=== PATIENT | male | born 1970 | race Caucasian/White ===

== ENCOUNTER → 2016-06-16 | Outpatient (CLI) | payer BC ==
[~2016-06-16] MED LIST: ASA325 MG PO; FLEXERIL DPS5 MG PO; GLUCOSAMINE/CHO1 TAB PO; MIRALAX PACKET17 GM PO; OXY IR DPS5 MG PO; SENOKOT S1 TAB PO; TYLENOL DPS325 MG PO; ULTRAM DPS50 MG PO; XARELTO10 MG PO
== END | disposition home or self-care (01) ==
LOC: PTH.S 10:43
DX: Z01.812 Encounter for preprocedural laboratory examination (principal)

== ENCOUNTER 2016-07-01 09:26 | Inpatient (IN) | payer BC ==
[~2016-07-01] VITALS: Ht 185.4 cm; Wt 103.0 kg
--- NOTE | 2016-07-01 15:27 | HP ---
ADMIT: 07/01/2016 RM/LOC: W.04 [facility] MR#: [id number] [address] [address] DARI YIP [address] [place] [address] Pre-OP History and Physical SEX: M AGE: 46 : 1970 Corrected: 07/01/2016 1146 djs DATE OF SERVICE: CHIEF COMPLAINT: Bilateral knee pain. HISTORY OF PRESENT ILLNESS: The patient is a 46-year-old white male, who has had bilateral knee severe DJD for several years. He has failed nonoperative treatment with medications, therapy, injections. He says he feels like he is ready for total knee arthroplasty. PAST MEDICAL HISTORY: Significant for history of back problems, knee arthroscopy in the past, and hernia repair. MEDICATIONS: 1. Aleve. 2. Glucosamine. ALLERGIES: NO KNOWN ALLERGIES. SOCIAL HISTORY: The patient does have a history of a chewing tobacco. Does not regularly drink alcohol. PHYSICAL EXAMINATION: HEENT: Normocephalic and atraumatic. CV: Regular rate and rhythm. LUNGS: Benign. ABDOMEN: Benign. NEUROLOGIC: Awake, alert, and oriented x3. MUSCULOSKELETAL: Shows significant varus orientation of the knee. Short a couple degrees of full extension, flexes 125 degrees. Tender over the medial joint line. There is patellofemoral crepitus. IMAGING DATA: X-rays show bilateral knee DJD, bone on bone medially and patellofemoral arthrosis. ADMIT: 07/01/2016 RM/LOC: W.04 [facility] MR#: [id number] [address] [address] DARI YIP [address] [place] [address] Pre-OP History and Physical SEX: M AGE: 46 : 1970 ASSESSMENT AND PLAN: Bilateral knee degenerative joint disease. At this point in time, we will plan bilateral total knee arthroplasties. The patient understands the risks and benefits of the surgical intervention, which include, but not limited to infection, DVT, arthrofibrosis, neurovascular injury, loosening, , etc., and desires to proceed. He will see his medical doctor, Dr. Rush, for preoperative medical clearance who will follow him postoperatively in the hospital for anticoagulation and any medical issues that may arise. Please refer to that H and P for any in-depth medical issues or medication changes. Aron Deleon MD/ nick JOB #: [id number] CC: Aron Deleon, Attending Physician Jeromy Álvarez, Family Physician Corrected: 07/01/2016 1146 djs
--- NOTE | 2016-07-01 18:22 | CO ---
ADMIT: 07/01/2016 RM/LOC: [facility] MR#: [id number] [id number] [facility] [address] [place], [place] [address] DARI YIP [address] [place] [address] Consultation Report SEX: M AGE: 46 : 1970 DATE OF CONSULTATION: 06/16/2016 ATTENDING PHYSICIAN: Aron Deleon CONSULTING PHYSICIAN: Vicki Rush MD HISTORY OF PRESENT ILLNESS: Mr. Yip is a 46-year-old gentleman from [place], [place], who is cared for by Dr. Álvarez, who is being cared for by Dr. Aron Deleon with planned bilateral total knee arthrotomy. PAST MEDICAL HISTORY: No health problems. He has had a total knee surgery done in 2011, shoulder surgery in 2005, tonsillectomy, and he has had several knee scopes as well as utilization of Synvisc therapy. SOCIAL HISTORY: He is . He has 2 children. College graduate teacher. He does utilize smokeless tobacco. Quit approximately 10 months ago. Drinks alcohol socially. FAMILY HISTORY: Positive for parents who of old age and pneumonia. MEDICATIONS: His current medications are: 1. Aleve 220 mg p.r.n. 2. Glucosamine chondroitin. 3. Ultram, which he rarely takes. REVIEW OF SYSTEMS: His general sense of health and well being is good. He has had no complaints, lightheadedness, dizziness, anterior chest pain, chest pressure, increasing shortness of breath, or respiratory distress. No changes in his bowel or bladder habits. No difficulty with any significant arthritic pain beyond bilateral knee pain. PHYSICAL EXAMINATION: GENERAL: He is alert, articulate. VITAL SIGNS: His blood pressure is 124/78, heart rate is 54, weight is 226 pounds. HEENT: Normal. HEART: Regular rhythm without murmur or rub. LUNGS: Clear, but diminished to auscultation. ABDOMEN: Soft, nontender, nondistended. EXTREMITIES: No evidence of peripheral edema noted. LABORATORY DATA: Sodium was 140, potassium 4.4, BUN and creatinine 16 and 1.2, blood sugar of 95. His white count was 7.7, hemoglobin 15.4, hematocrit of 44.3. ADMIT: 07/01/2016 RM/LOC: [facility] MR#: [id number] [address] [address] DARI YIP [address] [place] [address] Consultation Report SEX: M AGE: 46 : 1970 ASSESSMENT: Admission of a 46-year-old, white male with severe degenerative arthritis, chronic pain and discomfort, bilateral knees, who presents for surgical intervention and bilateral total knee arthrotomy. PLAN: At this time, I did contact Dr. Deleon's office. His nurse was available. She said that decision on anticoagulation will be made by myself. I did, after research, place him on Xarelto 10 mg, which he will utilize for 12 days status post total knee replacement, as well as after this, he will be on aspirin 325 mg for a total of 6 weeks of DVT prophylaxis with Xarelto and full strength aspirin. He, in addition, will start early ambulation. At this time, I see no contraindications to proceeding with surgical intervention and we will follow in the postop period. Vicki Rush MD/ nick JOB #: [id number] CC: Aron Deleon, Attending Physician UNKNOWN, Family Physician
[2016-07-06] MEDS ORDERED: ULTRAM DPS50 MG PO (10:29)
[2016-07-06] MEDS ORDERED: MIRALAX PACKET17 GM PO (10:29)
[2016-07-06] MEDS ORDERED: TYLENOL DPS325 MG PO (10:29)
[2016-07-06] MEDS ORDERED: GLUCOSAMINE/CHO1 TAB PO (10:29)
[2016-07-06] MEDS ORDERED: SENOKOT S1 TAB PO (10:29)
[2016-07-06] MEDS ORDERED: XARELTO10 MG PO (10:30)
[2016-07-06] MEDS ORDERED: FLEXERIL DPS5 MG PO (10:30)
[2016-07-06] MEDS ORDERED: ASA325 MG PO (10:31)
[2016-07-06] MEDS ORDERED: OXY IR DPS5 MG PO (10:31)
--- NOTE | 2016-07-08 13:43 | OR ---
ADMIT: 07/01/2016 RM/LOC: 528 [facility] MR#: [id number] [address] [facility] [address] [place] [id number] DARI YIP [address] [place] [address] Operative/Delivery Room Report SEX: M AGE: 46 : 1970 SURGERY DATE: 07/01/2016 SURGEON: Aron Deleon MD PREOPERATIVE DIAGNOSIS: Bilateral severe knee degenerative joint disease. POSTOPERATIVE DIAGNOSIS: Bilateral severe knee degenerative joint disease. PROCEDURE PERFORMED: Bilateral total knee arthroplasty with Cristhian and Cristhian system, size 5 posterior stabilized femoral component, size 4 tibial tray, size 38 patellar buttons. On the right, I used a 12.5 mm tibial insert. On the left, I used a 10.0 mm insert. COFFEE URN ATTENDANT: Be Alexander PA-C and JW Patel. ANESTHESIA: Spinal. ESTIMATED BLOOD LOSS: Minimal. FLUIDS: Per anesthetic record. COMPLICATIONS: None. DRAINS: 1. TOURNIQUET TIME: 72 minutes on the left, 66 minutes on the right. CONDITION: The patient returned to recovery room in fair condition. INDICATION: The patient has had bilateral severe knee DJD for several years to the point in time where he is not helped with injections or medications. He desires total knee arthroplasty. He said he understands the risks and benefits of procedure and desired to proceed with operation. DESCRIPTION OF PROCEDURE: The patient was taken to the OR, spinal placed. He was laid in the supine position. All bony prominences were well padded. A well- padded tourniquet was applied to left lower extremity. The left lower extremity was prepped and draped in the usual sterile fashion. It was exsanguinated and tourniquet inflated to 350 mmHg. An anterior incision was made starting over the medial aspect of the tibial tubercle carried proximal to the patella through the skin and subcutaneous tissue with a skin knife. Medial arthrotomy was then performed with #10 blade. Patella everted, knee flexed. The ACL, PCL, medial and lateral menisci excised. Step drill was then used to open the intramedullary canal of the femur. I placed an IM alignment guide the distal femoral cutting block down the intramedullary canal of the femur set at 5 degrees of valgus cut and 13 mm of resection and pinned it to the anterior aspect of the distal femur. I removed the IM alignment guide and cut the distal femur using an oscillating saw. I removed this cutting block and sized the femur to 5. I placed a size 5 four-in-one cutting block on the ADMIT: 07/01/2016 RM/LOC: 528 [facility] MR#: [id number] [address] [address] DARI YIP [address] [place] [address] Operative/Delivery Room Report SEX: M AGE: 46 : 1970 distal aspect of the femur in 3 degrees of external rotation, made the 4 appropriate cuts using an oscillating saw. I removed this cutting block and placed a box cutting jig on the distal aspect of the femur. I cut the box out of the distal femur using a reciprocating saw. The proximal tibia was then cut perpendicular to the long axis of the tibial shaft using the proximal tibial cutting guide and oscillating saw. The posterior aspect of the patella was cut flush with the posterior aspect of the quadriceps and patellar tendons using the patellar cutting saw. The patella was sized at a 38 and step drilled with a guide. Trial components were then placed, a size 4 tibial tray with a 10 mm insert gave excellent range of motion, stability, and patellar tracking. Thus, the femoral component was step-drilled. Tibial component was step-drilled and cruciate-punched. Trial components were then removed. Knee was thoroughly injected with Exparel-like compound. Knee was thoroughly irrigated with bacitracin solution and dried. I then cemented the tibia, patella, and femoral components into place removing all extraneous cement as it dried. I then impacted the 10 mm insert into the tibial tray and ran the knee through a range of motion. It had excellent range of motion, stability, and patellar tracking. Thus, one deep drain was then placed. Medial arthrotomy was closed using #1 Vicryl. Subcutaneous tissue was closed using 2-0 Vicryl, skin closed using immanuel. Wounds were washed, dried, dressed with sterile Adaptic, 4x4s, ABD, Webril, and Marc wrap. Drapes were removed. Tourniquet was let down. An ice pad was placed on the left leg. An identical procedure was then performed on the right side with the exception of using a 12.5 mm tibial insert instead of a 10.0 mm insert. When both knees were done, the patient was transferred back to the recovery room in fair condition. Aron Deleon MD/ nick JOB #: [id number] CC: Aron Deleon, Attending Physician Jeromy Álvarez, Family Physician
--- NOTE | 2016-07-22 15:05 | DS ---
ADMIT: 07/01/2016 RM/LOC: 528 [facility] MR#: [id number] 2620 [facility] [address] [place], [place] [address] MEERA YIP [address] [place] [address] General Discharge Summary SEX: M AGE: 46 : 1970 ADMISSION DATE: 07/01/2016 DISCHARGE DATE: 07/04/2016 REASON FOR ADMISSION: Elective bilateral total knee arthroplasties after failing conservative management for osteoarthritis. PREOPERATIVE DIAGNOSIS: Bilateral severe degenerative joint disease. POSTOPERATIVE DIAGNOSIS: Bilateral severe degenerative joint disease. PROCEDURE PERFORMED: Bilateral total knee arthroplasties. ANESTHETIC: Spinal. COMPLICATIONS: None. BLOOD LOSS: Minimal. SURGEON: Aron Deleon MD ASSISTANTS: Be Alexander PA-C and JW Patel ACTIVE MEDICAL PROBLEMS: Osteoarthritis. HOSPITAL COURSE: Meera was admitted on 08/31/2016 for elective bilateral total knee arthroplasty, it was completed successfully by Dr. Deleon. There were no complications. Postoperatively, he did well with pain control with use of intraoperative pain cocktail as well as oral analgesics. He participated well with physical therapy. Drains were used and removed on postoperative day 1. On postoperative day 1 health and safety consultant, he did have some difficulty with urination. Bladder scan found to have low volume; however, later that morning, he did begin to avoid and did well. DVT prophylaxis with the use of Xarelto 10 mg daily. On postoperative day 2, he had some increased pain, but did use morphine MOTOR BOSS that was discontinued on postop day 2 in the evening and intraoperative cocktail obviously did not work as well as anticipated. He was doing better, and he was safe and stable for discharge with plans for outpatient therapy. DISCHARGE MEDICATIONS: Include: 1. Glucosamine/chondroitin. 2. MiraLAX. ADMIT: 07/01/2016 RM/LOC: 528 [facility] MR#: [id number] 2620 [facility] [address] [place] [id number] MEERA YIP [address] [place] [address] General Discharge Summary SEX: M AGE: 46 : 1970 3. Senokot b.i.d. p.r.n. 4. Tylenol 650 mg q.4 p.r.n. 5. Ultram 50 mg, 1 to 2 q.6 p.r.n. 6. Xarelto 10 mg daily x12 days postop. 7. Flexeril 10 mg t.i.d. p.r.n. 8. OxyIR 5 mg 1 to 2 q.4 p.r.n. 9. Aspirin 325 mg daily x6 weeks after Xarelto. DISCHARGE INSTRUCTIONS: Meera will undergo outpatient therapy per total knee arthroplasty protocol bilaterals. Follow up in the orthopedic office in 2 weeks for wound check, 6 weeks with x-rays. Follow up with primary care as directed. Be Alexander PA-C / Aron Deleon MD / robynl JOB #: [id number] CC: Aron Deleon MD, Attending Physician Jeromy Álvarez MD, Family Physician
== END 2016-07-04 12:20 | disposition home or self-care (01) | DRG 462 ==
LOC: WOR 09:52 → 5MS 09:52
PROVIDERS: ADMIT Orthopaedic Surgery
DX: M17.0 Bilateral primary osteoarthritis of knee (principal); F41.9 Anxiety disorder, unspecified; Z87.891 Personal history of nicotine dependence